=== PATIENT | male | born 1970 | race Caucasian/White ===

== ENCOUNTER 2022-11-26 10:57 | Emergency (ER) | payer OTHER ==
[2022-11-26 11:26] LABS: BASOPHILS # (AUTO) 0.1 10^3/uL (0.0-0.1); BASOPHILS % (AUTO) 0.9 %; EOSINOPHILS # (AUTO) 0.2 10^3/uL (0.0-0.7); EOSINOPHILS % (AUTO) 2.2 %; HCT - HEMATOCRIT 45.6 % (42.0-52.0); HGB - HEMOGLOBIN 15.4 g/dL (14.0-18.0); LYMPHOCYTES # (AUTO) 1.5 10^3/uL (1.5-3.5); LYMPHOCYTES % (AUTO) 14.1 %; MEAN CORPUSCULAR HGB CONC 33.8 g/dL (32.0-36.0); MEAN CORPUSCULAR VOLUME 91.9 fL (80.0-94.0); MONOCYTES # (AUTO) 1.1 10^3/uL (0.0-1.0); MONOCYTES % (AUTO) 10.2 %; NEUTROPHILS # (AUTO) 7.6 10^3/uL (1.5-6.6); NEUTROPHILS % (AUTO) 72.3 %; PLT - PLATELET COUNT 270 10^3/uL (130-450); RED BLOOD COUNT 4.96 10^6/uL (4.70-6.10); RED CELL DISTRIBUTION WIDTH 12.7 % (12.0-15.0); WHITE BLOOD COUNT 10.5 x10^3/uL (4.8-10.8)
[2022-11-26 11:39] LABS: ALBUMIN 4.3 g/dL (3.2-5.5); ALBUMIN/GLOBULIN RATIO 1.7 (1.0-2.2); BILIRUBIN,TOTAL 0.5 mg/dL (0.2-1.0); CALCIUM 9.4 mg/dL (8.5-10.3); CREATININE 0.8 mg/dL (0.6-1.3); TOTAL PROTEIN 6.9 g/dL (6.4-8.9)
--- NOTE | 2022-11-26 12:00 | Ultrasound Report ---
PROCEDURE: Duplex Ext Veins Right INDICATIONS: Posteror left pain. From calf to knee. TECHNIQUE: Real-time imaging, as well as color and pulse Doppler interrogation, were performed of the lower extr emity deep veins from the inguinal ligament to the popliteal fossa. Attempted visualization of the ca lf veins was performed. COMPARISON: None. FINDINGS: The deep veins are normally compressible, and free of intraluminal thrombus. Color and pu lse Doppler demonstrate normal phasic intraluminal flow. There is normal augmentation response to di stal compression maneuver. IMPRESSION: No deep venous thrombosis of the visualized lower extremity. Reviewed by: Matthew Johnson MD on 11/26/2022 11:58 AM PDT Approved by: Matthew Johnson MD on 11/26/2022 11:58 AM PDT Station ID: [id number]
--- NOTE | 2022-11-26 12:01 | ED Physician Documentation ---
PD HPI LOWER EXT INJURY - Stated complaint Stated Complaint: RT KNEE INJ - Chief complaint Chief Complaint: Ext Problem - History obtained from History obtained from: Patient - Additional information Additional information: 51-year-old male with history of migraines presents by private vehicle for right knee and calf pain. Patient just flew in 2 days ago from [place] and was walking around [place] yesterday when he noticed pain in his calf and his knee. Pain is worse with ambulation and with extension. Patient is here today because he is concerned for possible DVT. Denies history of blood clots in the past. Denies use of blood thinners. Review of Systems Constitutional: denies: Fever GI: denies: Abdominal Pain, Nausea, Vomiting : denies: Dysuria, Frequency, Hesitancy Musculoskeletal: reports: Extremity pain, Joint pain. denies: Neck pain, Back pain, Extremity swelling Neurologic: denies: Generalized weakness, Focal weakness, Numbness, Difficulty speaking PD PAST MEDICAL HISTORY - Past Medical History Neuro: Migraines - Present Medications Home Medications: Ambulatory Orders Medication Instructions Recorded Confirmed methocarbamoL [Robaxin] 500 mg PO Q6H #30 tablet 11/26/22 - Allergies Allergies/Adverse Reactions: Allergies Allergy/AdvReac Type Severity Reaction Status Date / Time No Known Drug Allergies Allergy Verified 11/26/22 11:05 PD ED PE NORMAL - Vitals Vital signs reviewed: Yes - General General: Alert and oriented X 3, No acute distress, Well developed/nourished - HEENT HEENT: Atraumatic - Neck Neck: Supple, no meningeal sign - Cardiac Cardiac: RRR, Strong equal pulses - Respiratory Respiratory: No respiratory distress, Clear bilaterally - Abdomen Abdomen: Soft, Non tender, Non distended - Back Back: No CVA TTP - Derm Derm: Normal color, Warm and dry, No rash - Extremities Extremities: No deformity, No tenderness to palpate, No edema, Other (Minimal hamstring tenderness to deep palpation. Full ROM. 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, No motor deficit, Normal speech Results - Vitals Vitals: Oxygen O2 Source Room air - Labs Labs: Laboratory Tests 11/26/22 11/26/22 11:21 11:21 WBC 10.5 RBC 4.96 Hgb 15.4 Hct 45.6 MCV 91.9 MCH 31.0 MCHC 33.8 RDW 12.7 Plt Count 270 MPV 10.0 Neut # (Auto) 7.6 H Lymph # (Auto) 1.5 Teller # (Auto) 1.1 H Eos # (Auto) 0.2 Baso # (Auto) 0.1 Absolute Nucleated RBC 0.00 Nucleated RBC % 0.0 Sodium 139 Potassium 4.0 Chloride 108 Carbon Dioxide 27 Anion Gap 4.0 L BUN 14 Creatinine 0.8 Estimated GFR (MDRD) 102 Glucose 114 H Calcium 9.4 Total Bilirubin 0.5 AST 16 ALT 25 Alkaline Phosphatase 69 Total Protein 6.9 Albumin 4.3 Globulin 2.6 Albumin/Globulin Ratio 1.7 PD Medical Decision Making - ED course Complexity details: reviewed results, re-evaluated patient, considered differential, d/w patient, d/w family ED course: Atraumatic knee pain and swelling. Recent long flight from [place]. No appreciable edema, full range of motion. Neurologically and vascularly intact. Will obtain basic lab work and ultrasound imaging. No indication for x-ray imaging due to atraumatic nature of pain. Laboratory work is unremarkable. Ultrasound negative for DVT. Patient and family member at bedside advised of lab and imaging results. Recommended gentle stretching exercises, heating and ice as tolerated for comfort, recommended alternating Tylenol and Motrin as needed for pain. Will discharge with short course of muscle relaxers.Patient and family given strict ER return precautions as well as different [id number] medication options for pain. Departure - Departure Disposition: 01 Home, Self Care Clinical Impression: Right leg pain Condition: Stable Instructions: ED Muscle Pain Leg Cramps, ED Strain Muscle Ext Prescriptions: methocarbamoL [Robaxin] 500 mg PO Q6H #30 tablet Comments: USE TYLENOL AND MOTRIN NEEDED FOR PAIN. YOU CAN ALSO USE ICY-HOT CREAM (SOMETIMES CALLED BENGAY) FOR PAIN RELIEF. YOU CAN ALSO ASK LOCAL PHARMACIES FOR HEATING PACKS. Forms: PCP List Discharge Date/Time: 11/26/22 12:29
[2022-11-26 12:42] VITALS: BP 135/82; O2SAT 98
== END 2022-11-26 12:29 | disposition home or self-care (01) ==
LOC: ED 10:57
DX: M79.604 Pain in right leg (principal)
CPT/HCPCS: 36415; 80053; 85025; 99283; 99284